=== PATIENT | male | born 1950 | race Caucasian/White ===

== ENCOUNTER 2018-01-25 19:17 | Emergency (ER) | payer SELFPAY ==
[~2018-01-25] VITALS: Ht 182.9 cm; Wt 80.0 kg
[2018-01-25 19:45] VITALS: BP 135/68; PULSE 68; RESP 18; TEMP 98.2; O2SAT 100
== END 2018-01-25 20:22 | disposition left against medical advice (07) ==
LOC: NED 19:17
DX: M25.519 Pain in unspecified shoulder (principal)
CPT/HCPCS: 99281